=== PATIENT | female | born 1995 | race African-American/Black ===

== ENCOUNTER 2024-09-08 20:16 | Emergency (ER) | payer OTHER ==
[~2024-09-08] VITALS: Ht 167.6 cm; Wt 90.7 kg
[2024-09-08] MEDS ORDERED: FAMOtidine 10 MG/ML (4ML VIAL) IV ONE (21:00)
[2024-09-08] MEDS ORDERED: LevETIRAcetam 500 MG/5 ML VIAL IV ONE ×2 (21:00→21:16)
[2024-09-08] MEDS ORDERED: TRAMADOL HCL 50 MG TABLET PO ONE (21:00)
[2024-09-08] MEDS ORDERED: FAMOTIDINE/PF 20 MG/2 ML VIAL ONE (21:16)
[2024-09-08 21:44] LABS: HEMATOCRIT 38.3 % (36.0-45.00); HEMOGLOBIN 12.6 g/dL (12.0-15.00); MEAN CELL VOLUME 76.7 fL (80.00-100.00); MEAN CORPUSCULAR HEMOGLOBIN 25.4 pg (27.00-32.0); PLATELET COUNT 344 K/uL (150-450); RED BLOOD COUNT 4.99 M/uL (4.00-6.00); RED CELL DISTRIBUTION WIDTH 18.7 % (11.5-14.5)
[2024-09-08 22:03] LABS: POTASSIUM 3.93 mEq/L (3.5-5.1)
[2024-09-08 22:08] LABS: PARTIAL THROMBOPLASTIN TIME 24.2 SECONDS (22.0-34.0); PROTHROMBIN TIME 10.9 SECONDS (9.0-11.5)
[2024-09-08 22:11] LABS: ALBUMIN 4.2 gm/dL (3.4-5.0); CREATININE SERUM 0.82 mg/dL (0.55-1.02); GFR 83.62; TOTAL PROTEIN 8.2 gm/dL (6.4-8.2)
[2024-09-08 22:14] LABS: BILIRUBIN TOTAL 0.4 mg/dL (0.3-1.2)
[2024-09-09] MEDS ORDERED: ACETAMINOPHEN 500 MG GEL..CAP PO STA (02:40)
== END 2024-09-09 02:47 | disposition home or self-care (01) ==
LOC: ER 20:16
PROVIDERS: General Practice
DX: S00.83XA Contusion of other part of head, initial encounter (principal); X58.XXXA Exposure to other specified factors, initial encounter; Y93.89 Activity, other specified; Y92.89 Other specified places as the place of occurrence of the external cause; Y99.9 Unspecified external cause status